=== PATIENT | female | born 1980 | race Caucasian/White ===

== ENCOUNTER → 2017-01-15 | Outpatient (CLI) | payer BC ==
[2017-01-15 09:17] LABS: HEMOGLOBIN 9.1 gm/dl (12.3-15.3); RED BLOOD COUNT 3.56 M/UL (4.00-5.10); WHITE BLOOD COUNT 8.7 K/UL (4.5-11.0)
[2017-01-15 10:40] LABS: BUN/CREATININE RATIO 20 (0-10)
== END ==
LOC: GENOP 04:39
PROVIDERS: Obstetrics & Gynecology
DX: O99.89 Other specified diseases and conditions complicating pregnancy, childbirth and the puerperium (principal); R10.9 Unspecified abdominal pain; R11.0 Nausea; Z3A.20 20 weeks gestation of pregnancy
CPT/HCPCS: 36415; 80053; 82150; 83690; 85025; 96360; 96361; 96374; 96375; J2405; J2550; J7050; J7120

== ENCOUNTER → 2021-04-26 | Outpatient (CLI) | payer BC | LOC: US 03-28 13:30 → CT 09:42 → US 11:00 | DX: R59.1 Generalized enlarged lymph nodes (principal); R16.2 Hepatomegaly with splenomegaly, not elsewhere classified; N64.4 Mastodynia; Z98.82 Breast implant status | CPT/HCPCS: Q9967 ==

== ENCOUNTER → 2021-04-29 | Outpatient (CLI) | payer BC | LOC: LAB 12:22 | PROVIDERS: Nurse Practitioner Family | DX: D64.9 Anemia, unspecified (principal) | CPT/HCPCS: 36415; 85014; 85018; 86850; 86900; 86901; 86920; P9040 ==

== ENCOUNTER → 2021-05-01 | Outpatient (CLI) | payer BC | LOC: OPSV 04-30 09:00 | DX: D64.9 Anemia, unspecified (principal) | CPT/HCPCS: 36430; J7050; P9040 ==

== ENCOUNTER 2021-07-11 10:26 | Emergency (ER) | payer BC ==
[~2021-07-11] VITALS: Ht 172.7 cm; Wt 70.3 kg
== END 2021-07-11 13:45 | disposition home or self-care (01) ==
LOC: ER1 10:26
DX: Z23 Encounter for immunization (principal); U07.1 COVID-19
CPT/HCPCS: 99283; M0243

== ENCOUNTER → 2021-08-19 | Outpatient (CLI) | payer BC ==
[2021-08-19 10:44] LABS: HEMOGLOBIN 10.2 gm/dl (12.3-15.3)
== END ==
LOC: OPSV 10:06
PROVIDERS: Nurse Practitioner Family
DX: D64.9 Anemia, unspecified (principal); R06.02 Shortness of breath; N92.0 Excessive and frequent menstruation with regular cycle
CPT/HCPCS: 36415; 36430; 85014; 85018; 86850; 86900; 86901; 86920; P9016

== ENCOUNTER → 2021-09-03 | Outpatient (CLI) | payer BC ==
[~2021-09-03] MED LIST: BENADRYL25 MG PO; HYDROCODON-ACE1 EAC2 PO; METFORMIN HCL1000 MG PO; NAPROSYN EC 50500 MG PO; THRIVE PO; TURMERIC PO; VITAMIN C1000 MG PO; VITAMIN D21250 MCG PO; VITAMIN E450 MG PO; XYZAL5 MG PO; ZOFRAN 4 MG TAB4 MG PO; [UNRECOGNIZED DRUG - OTHER] PO
[2021-09-03 10:07] LABS: HEMOGLOBIN 10.7 gm/dl (12.3-15.3); RED BLOOD COUNT 4.6 M/UL (4.00-5.10); WHITE BLOOD COUNT 6.9 K/UL (4.5-11.0)
== END ==
LOC: OPSV2 09:00
PROVIDERS: Obstetrics & Gynecology
DX: Z01.818 Encounter for other preprocedural examination (principal); N92.0 Excessive and frequent menstruation with regular cycle
CPT/HCPCS: 81001; 85025; 93005

== ENCOUNTER → 2021-09-05 | Day surgery (SDC) | payer BC | END | disposition home or self-care (01) | LOC: OR 05:20 | DX: N92.0 Excessive and frequent menstruation with regular cycle (principal); D50.0 Iron deficiency anemia secondary to blood loss (chronic); E28.2 Polycystic ovarian syndrome; R16.1 Splenomegaly, not elsewhere classified; Z79.84 Long term (current) use of oral hypoglycemic drugs; Z79.899 Other long term (current) drug therapy; Z20.822 Contact with and (suspected) exposure to COVID-19 | CPT/HCPCS: J0690; J1100; J1885; J2250; J2405; J2704; J2795; J3010; J7030; J7120 ==

== ENCOUNTER 2021-09-09 18:12 | Emergency (ER) | payer BC | END 2021-09-09 21:14 | disposition home or self-care (01) | LOC: ER1 18:12 | DX: M79.605 Pain in left leg (principal) | CPT/HCPCS: 85379; 85610; 85730; 99283 ==

== ENCOUNTER → 2022-04-15 | Outpatient (CLI) | payer BC | LOC: CT 09:00 | DX: R16.2 Hepatomegaly with splenomegaly, not elsewhere classified (principal); R59.0 Localized enlarged lymph nodes | CPT/HCPCS: Q9967 ==